=== PATIENT | male | born 1975 | race Caucasian/White ===

== ENCOUNTER 2016-12-18 13:27 | Emergency (ER) | payer MEDICARE ==
--- NOTE | ~2016-12-18 | CR21 ---
[facility] A Service of [facility] RADIOLOGY TEXT RESULTS PATIENT: DAVY MATA LOCATION: SED : 77 UNIT #: [id number] AGE: [address]: PIYUSH STEVEN SEX: M ORDER DR: [id number] [place] [id number] E MR#: [id number] Acc #: [id number] NAME: DAVY MATA : 1975 SEX: M STUDY DATE/TIME: 12/18/2016 14:11 UNIT: SED ROOM: STUDY DESCRIPTION: CR Ankle Min 3 Views Rt Attending Physician: Piyush Steven A.P.R.N. Ordering Physician: Piyush Steven A.P.R.N. Primary Care Physician: Primary Care Physician No MEDICAL IMAGING REPORT This report is preliminary unless electronic signature is present. EXAM Right ankle, 3 views COMPARISON Right foot dated August 18, 2011. INDICATIONS 41-year-old male with medial right ankle pain and swelling for 3 days, after feeling a pop while running on a treadmill. FINDINGS There is bulky osteophyte formation at the anterior talar dome and at the anterior malleolus. There is intrasubstance ossicle at the Achilles attachment of the calcaneus measuring up to 6 mm, and there is a moderate enthesophyte at the plantar fascial attachment of the calcaneus. No evidence of acute fracture. Bones are anatomically aligned. Surgical screw noted in the first metatarsal, incompletely imaged. IMPRESSION No evidence of acute fracture or dislocation at the right ankle. 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 There is a 5 mm intrasubstance ossicle at the Achilles insertion of the calcaneus. Dictated by... Brien Dixon M.D. THIS IS AN ELECTRONICALLY VERIFIED REPORT Brien Dixon M.D. at 12/26/2016 9:13 PM [facility] A Service of [facility] RADIOLOGY TEXT RESULTS PATIENT: DAVY MATA LOCATION: SED : [birth year] UNIT #: [id number] AGE: [address]: PIYUSH STEVEN SEX: M ORDER DR: TD: 12/18/2016 21:19 JOB #: [id number] MEDICAL IMAGING REPORT Page 1 of 1
[~2016-12-18 13:27] MED LIST: CIPRO PO; FLAGYL PO; HYDROCODON-ACE1 EAC9 PO; MOBIC15 MG PO; NO MEDICATIONS; PERCOCET 10/3251 TAB; SENNA S TABLET1 TAB PO; ZOFRAN ODT4 MG PO
== END 2016-12-18 15:30 | disposition home or self-care (01) ==
LOC: SED 13:27
DX: S93.401A Sprain of unspecified ligament of right ankle, initial encounter (principal); Z98.890 Other specified postprocedural states; X50.1XXA Overexertion from prolonged static or awkward postures, initial encounter; Y92.9 Unspecified place or not applicable
CPT/HCPCS: 29405; 73610; 99283